=== PATIENT | female | born 1950 | race Caucasian/White ===

== ENCOUNTER 2019-06-16 06:32 | Day surgery (SDC) | payer OTHER ==
[2019-06-14 10:47] VITALS: BP 121/79
[~2019-06-16] VITALS: Ht 160 cm; Wt 85.1 kg
[~2019-06-16 06:32] MED LIST: CITA40TA5 PO; PROP20TA PO; TOPI50TA8 PO
[2019-06-16] MEDS ORDERED: LACTATED RINGERS 1,000 ML IV SCH (07:00)
[2019-06-16] MEDS ORDERED: HEPARIN 1,000 UNITS/ML, 10ML ONE (07:09)
[2019-06-16] MEDS ORDERED: BUPIVACAINE/PF-EPI 0.5% 1:200K ONE (07:09)
[2019-06-16] MEDS ORDERED: CHLORHEXIDINE 15 ML UDC MM ONE (07:30)
[2019-06-16] MEDS ORDERED: MIDAZOLAM 1 MG/ML, 2ML ONE (08:04)
[2019-06-16] MEDS ORDERED: FENTANYL PF 100 MCG/2ML ONE (08:04)
[2019-06-16] MEDS ORDERED: PROPOFOL 10 MG/ML, 20ML ONE (08:41)
[2019-06-16] MEDS ORDERED: CEFAZOLIN 1,000 MG ONE (08:41)
[2019-06-16] MEDS ORDERED: SUCCINYLCHOLINE 20 MG/ML, 10ML ONE (08:41)
[2019-06-16] MEDS ORDERED: ROCURONIUM 10 MG/ML,10ML ONE (08:41)
[2019-06-16] MEDS ORDERED: ONDANSETRON 2MG/ML, 2ML ONE (08:41)
[2019-06-16] MEDS ORDERED: OXYcodone 5 MG/5 ML ORAL.SOL UDC PO PRN (10:00)
[2019-06-16] MEDS ORDERED: ONDANSETRON 2MG/ML, 2ML IVPush PRN (10:00)
[2019-06-16] MEDS ORDERED: FENTANYL PF 100 MCG/2ML IV PRN (10:00)
[2019-06-16] MEDS ORDERED: ALBUTEROL SULFATE 2.5 MG/3 ML NPPB PRN (10:00)
[2019-06-16] MEDS ORDERED: KETOROLAC 30 MG/1 ML IV PRN (10:00)
[2019-06-16] MEDS ORDERED: HYDROmorphone 1 MG/ML, 1ML INJ IV PRN (10:00)
[2019-06-16] MEDS ORDERED: DIAZEPAM 5 MG/ML, 2ML IV PRN ×2 (10:00)
[2019-06-16] MEDS ORDERED: hydrALAzine 20 MG/ML, 1ML IV PRN (10:00)
[2019-06-16] MEDS ORDERED: MEPERIDINE/PF 25MG/0.5ML IVPush PRN (10:00)
[2019-06-16] MEDS ORDERED: METOCLOPRAMIDE 5 MG/ML, 2ML IV PRN (10:00)
[2019-06-16] MEDS ORDERED: LABETALOL 5MG/ML, 20ML IV PRN (10:00)
[2019-06-16] MEDS ORDERED: PROMETHAZINE 25 MG/ML, 1ML IV PRN (10:00)
== END 2019-06-16 11:40 | disposition home or self-care (01) ==
LOC: OUT 06:32
PROVIDERS: ATTEND Surgery
DX: C50.411 Malignant neoplasm of upper-outer quadrant of right female breast (principal); F32.9 Major depressive disorder, single episode, unspecified; E66.9 Obesity, unspecified; Z68.32 Body mass index [BMI] 32.0-32.9, adult; Z79.899 Other long term (current) drug therapy; Z90.710 Acquired absence of both cervix and uterus
CPT/HCPCS: 36561; 71045; 76937; 77001; 93005; C1788; J0330; J0690; J1644; J2250; J2405; J2704; J3010; J7120; C1751

== ENCOUNTER 2019-06-24 08:00 | Outpatient (CLI) | payer OTHER ==
[~2019-06-24 08:00] MED LIST changes: +LIDOCAINE 1%, 20ML ONE; +LIDOCAINE 1%-EPI 1:100K, 20ML ONE; +SODIUM BICARBONATE 4.2%, 5ML ONE
== END 2019-06-24 23:59 | disposition home or self-care (01) ==
LOC: CFH 08:00
PROVIDERS: ATTEND Surgery
DX: C50.411 Malignant neoplasm of upper-outer quadrant of right female breast (principal)
CPT/HCPCS: 10035; 10036; J3490

== ENCOUNTER 2019-11-10 06:55 | Outpatient (CLI) | payer OTHER ==
[~2019-11-10 06:55] MED LIST changes: -LIDOCAINE 1%, 20ML ONE; -LIDOCAINE 1%-EPI 1:100K, 20ML ONE; -SODIUM BICARBONATE 4.2%, 5ML ONE
[2019-11-10] MEDS ORDERED: LIDOCAINE 1%-EPI 1:100K, 20ML ONE (07:30)
[2019-11-10] MEDS ORDERED: LIDOCAINE 1%, 20ML ONE (07:30)
[2019-11-10] MEDS ORDERED: SODIUM BICARBONATE 4.2%, 5ML ONE (07:30)
== END 2019-11-10 23:59 | disposition home or self-care (01) ==
LOC: CFH 06:55
PROVIDERS: ATTEND Surgery
DX: C50.411 Malignant neoplasm of upper-outer quadrant of right female breast (principal); Z79.899 Other long term (current) drug therapy; Z72.89 Other problems related to lifestyle
CPT/HCPCS: 19285; 77065; J3490